=== PATIENT | female | born 1960 | race Caucasian/White ===

== ENCOUNTER → 2020-11-26 | Day surgery (SDC) | payer OTHER | END | disposition home or self-care (01) | LOC: EDSTATUS 09:30 → JRADUS 09:37 → JRADUS-SUR 09:37 | PROVIDERS: ATTEND Obstetrics & Gynecology | PROC: BU0 Imaging, Female Reproductive System, Plain Radiography (ICD-10-PCS; principal; 2020-11-26) | DX: D25.9 Leiomyoma of uterus, unspecified (principal); Z53.8 Procedure and treatment not carried out for other reasons | CPT/HCPCS: 76831 ==